=== PATIENT | male | born 1960 | race Caucasian/White ===

== ENCOUNTER 2019-03-06 17:34 | Inpatient (IN) | payer OTHER, MEDICAID ==
[~2019-03-06] VITALS: Ht 188 cm; Wt 111.3 kg
[2019-03-06 18:33] LABS: Albumin 3.7 g/dL (3.4-5.0); Calcium 8.6 mg/dL (8.5-10.1); Potassium 3.6 mmol/L (3.5-5.1)
[2019-03-06 18:36] LABS: BUN/Creatinine Ratio 14.4; Bilirubin, Total 1.2 mg/dL (0.2-1.0); Total Protein 7.9 g/dL (6.4-8.2)
[2019-03-06 18:39] LABS: Eosinophils # (auto) 0.2 uL; Lymphocytes # (auto) 1.7 uL; Monocytes # (auto) 0.6 uL
[2019-03-06 18:49] LABS: Basophils # (auto) 0.1 uL; Basophils % (auto) 0.8 % (0.0-2.0); Hemoglobin 20.2 g/dL (13.5-17.5); Lymphocytes % (auto) 18.3 % (10.0-50.0); Monocytes % (auto) 6.8 % (0.0-12.0); Neutrophils # (auto) 6.6 uL; Neutrophils % (auto) 72.1 % (37.0-80.0); Nucleated Red Blood Cells % 0.5 %; Red Blood Cells 6.81 10^6/uL (4.5-5.90); White Blood Cell 9.2 10^3/uL (4.4-10.8)
[2019-03-06 18:50] LABS: Hematocrit 60.8 % (41.0-53.0); Mean Corpuscular Hemoglobin 29.6 pg (28.0-32.0); Mean Corpuscular Hgb Conc. 33.2 g/dL (32.0-36.0); Mean Corpuscular Volume 89.3 fL (80.0-100.0); Platelet Count (auto) 210 10^3/uL (140-450); Red Cell Distribution Width 17.2 % (11.8-14.3)
[2019-03-06] MEDS ORDERED: NITROGLYCERIN 0.4MG/HR TOPICAL PATCH TD ONE (19:30)
[2019-03-06] MEDS ORDERED: LORazepam 0.5 MG TAB PO ONE (19:30)
[2019-03-06] MEDS ORDERED: ASPirin 81 mg TAB PO ONE (19:30)
[2019-03-06] MEDS ORDERED: SODIUM CHLORIDE 0.9% 1,000 ML IV ONE (20:00)
[2019-03-06 20:16] LABS: INR 0.93 (0.9-1.15); Partial Thromboplastin Time 25.2 sec (23.64-32.05); Prothrombin Time 10.1 sec (9.06-12.60)
[2019-03-06] MEDS ORDERED: IOHEXOL 350 MG/ML 100ML IJ ONE (22:29)
[2019-03-06] MEDS ORDERED: ALLO300T2 PO (23:11)
[2019-03-06] MEDS ORDERED: LISI-646 PO (23:11)
[2019-03-06] MEDS ORDERED: AML5T PO (23:11)
[2019-03-06] MEDS ORDERED: METO-169 PO (23:11)
[2019-03-07] MEDS ORDERED: ACETAMINOPHEN 325 MG TAB PO PRN (00:30)
[2019-03-07] MEDS ORDERED: NITROGLYCERIN 0.4 MG SL TAB SL PRN (00:30)
[2019-03-07] MEDS ORDERED: TEMAZEPAM 15 MG CAP PO PRN (00:30)
[2019-03-07] MEDS ORDERED: HYDROcodone-ACET 5/325MG TAB PO PRN (00:30)
[2019-03-07] MEDS ORDERED: MORPHINE SULF INJ 2 MG/ML SYRINGE 1ML IV PRN (00:30)
[2019-03-07] MEDS ORDERED: ONDANSETRON HCL 4 MG/2 ML VIAL IV PRN (00:30)
[2019-03-07] MEDS: SODIUM CHLORIDE 0.9% 1,000 ML IV SCH ×2 (00:46→17:04)
[2019-03-07] MEDS ORDERED: ENOXAPARIN SOD 100 MG/1 ML SYRINGE SC SCH (01:00)
[2019-03-07] MEDS ORDERED: ATORVASTATIN 20 MG TAB PO SCH ×2 (01:00→22:00)
[2019-03-07] MEDS ORDERED: FUROSEMIDE 20 MG/2 ML VIAL IV SCH (01:00)
--- NOTE | 2019-03-07 02:20 | NUR ---
Telemetry admit from ER VIKY WILDER admitted to Telemetry unit after SBAR received. Patient oriented to Valerie Shirley, primary RN, unit, room, bed, and unit policies regarding patient care and visiting hours. Patient now on continuous telemetry monitoring, tele box #27 and telemetry reading on arrival to unit is . Patient placed on bedside oxygen, weighed by bedscale and encouraged to call if they need something. All questions and concerns addressed, patient verbalized understanding. Note:
[2019-03-07 05:00] VITALS: BP 128/74
[2019-03-07 08:00] VITALS: BP 131/68
--- NOTE | 2019-03-07 08:00 | NUR ---
Opening Shift Note Assumed care of patient, awake, alert and oriented X4. No S/S of distress/SOB or pain. Tele# 27, sinus rhythm @ 97 bpm. IV to right antecubital, 22 gauge, patent and infusing 0.9% NS @ 60 ml/hr. Instructed on POC and to call for assist PRN, verbalized understanding. 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 Bed locked, in lowest position, call light within reach, will continue to monitor for changes Q1hr and PRN.
[2019-03-07] MEDS: ASPirin 81 mg TAB PO SCH (10:23)
[2019-03-07] MEDS: FUROSEMIDE 40 MG TAB PO SCH (10:24)
[2019-03-07] MEDS: amLODIPine BESYLATE 5 MG TAB PO SCH (10:24)
[2019-03-07] MEDS: METOPROLOL SUCCINATE XL 50 MG TAB PO SCH (10:25)
[2019-03-07] MEDS: FAMOTIDINE 20 MG TAB PO SCH ×2 (10:25→21:40)
[2019-03-07] MEDS: LISINOPRIL 20 MG TAB PO SCH ×2 (10:26→21:40)
[2019-03-07] MEDS: ALLOPURINOL 300 MG TAB PO SCH (10:26)
[2019-03-07 12:00] VITALS: BP 136/87
--- NOTE | 2019-03-07 12:08 | NUR ---
ROUNDS Dr [place] at bedside for rounds, new orders received and followed through. Patient updated on plan of care, verbalized understanding.
[2019-03-07 17:00] VITALS: BP 140/90
--- NOTE | 2019-03-07 19:12 | NUR ---
Care endorsed to MARVIN Moreira, night nurse.
--- NOTE | 2019-03-07 19:15 | NUR ---
OPENING NOTE Received report from day shift RN. Patient is A&O X's 4 with no s/s of distress noted. Educated patient on POC/to use call light when in need of assistance. Patient verbalized understanding. Bed is in lowest/locked position with side rails up X's 2 and call light is within reach of patient. Crutches are at bedside. Will continue to monitor for changes and round hourly/PRN.
--- NOTE | 2019-03-07 20:25 | NUR ---
IV INSERTION 22G IV to left hand was inserted using clean technique with one attempt. Patient tolerated procedure well. 20G IV to right AC was already removed by accident by patient. Catheter was fully intact and no trauma was noted. Applied gauze to site.
[2019-03-07 22:00] VITALS: BP 160/86
[2019-03-08 04:54] VITALS: BP 171/100
--- NOTE | 2019-03-08 05:27 | NUR ---
REASSESS BLOOD PRESSURE 135/88
[2019-03-08 06:43] LABS: Basophils # (auto) 0 uL; Eosinophils # (auto) 0.2 uL; Hemoglobin 18.3 g/dL (13.5-17.5); Lymphocytes # (auto) 1.9 uL; Monocytes # (auto) 0.6 uL; Nucleated Red Blood Cells % 0.1 %; Red Blood Cells 6.18 10^6/uL (4.5-5.90); White Blood Cell 5.4 10^3/uL (4.4-10.8)
[2019-03-08 06:45] LABS: Basophils % (auto) 0.5 % (0.0-2.0); Eosinophils % (auto) 2.8 % (0.0-7.0); Hematocrit 54.7 % (41.0-53.0); Lymphocytes % (auto) 34.5 % (10.0-50.0); Mean Corpuscular Hemoglobin 29.7 pg (28.0-32.0); Mean Corpuscular Hgb Conc. 33.5 g/dL (32.0-36.0); Mean Corpuscular Volume 88.6 fL (80.0-100.0); Monocytes % (auto) 11.2 % (0.0-12.0); Neutrophils # (auto) 2.8 uL; Platelet Count (auto) 178 10^3/uL (140-450); Red Cell Distribution Width 16.4 % (11.8-14.3)
[2019-03-08 06:49] LABS: Calcium 8.8 mg/dL (8.5-10.1); Potassium 3.9 mmol/L (3.5-5.1)
[2019-03-08 06:53] LABS: BUN/Creatinine Ratio 15.4
[2019-03-08] MEDS: ASPirin 81 mg TAB PO SCH (07:59)
[2019-03-08] MEDS: ALLOPURINOL 300 MG TAB PO SCH (07:59)
[2019-03-08] MEDS: FAMOTIDINE 20 MG TAB PO SCH (07:59)
[2019-03-08 08:00] VITALS: BP 148/104
--- NOTE | 2019-03-08 08:00 | NUR ---
Opening Shift Note Assumed care of patient, awake, alert and oriented X4. No S/S of distress/SOB or pain. Tele# 27, sinus rhythm @ 96 bpm. IV to left hand, 22 gauge, patent and infusing 0.9% NS @ 60 ml/hr. Right BKA with stump healed, clean, dry and intact. Instructed on POC and to call for assist PRN, verbalized understanding. Bed locked, in lowest position, call light within reach, will continue to monitor for changes Q1hr and PRN.
[2019-03-08] MEDS: METOPROLOL SUCCINATE XL 50 MG TAB PO SCH (08:02)
[2019-03-08] MEDS: amLODIPine BESYLATE 5 MG TAB PO SCH (08:03)
[2019-03-08] MEDS: FUROSEMIDE 40 MG TAB PO SCH (08:03)
[2019-03-08] MEDS: LISINOPRIL 20 MG TAB PO SCH (08:03)
[2019-03-08] MEDS ORDERED: NICOTINE 14 MG/24HR TOPICAL PATCH TD SCH (10:00)
--- NOTE | 2019-03-08 10:30 | NUR ---
Rounds Dr Boston at bedside discussing POC with patient. Signed: 03/08/19 at 1137 by SN MYLES <Co-Signature Required> Co-Signed: 03/08/19 at 1137 by Ginny Awad RN
[2019-03-08 11:48] VITALS: BP 147/99
[2019-03-08 12:00] VITALS: BP 147/99
== END 2019-03-08 12:30 | disposition home or self-care (01) | DRG 291 ==
LOC: ER 17:34 → TELE 03-07 00:31 → TELE-CENTR 03-07 02:28
PROVIDERS: ADMIT Nurse Practitioner; ATTEND Internal Medicine Geriatric Medicine
DX: I11.0 Hypertensive heart disease with heart failure (principal); I50.31 Acute diastolic (congestive) heart failure; E78.5 Hyperlipidemia, unspecified; F17.210 Nicotine dependence, cigarettes, uncomplicated; M10.9 Gout, unspecified; Z89.511 Acquired absence of right leg below knee; Z88.2 Allergy status to sulfonamides; R07.89 Other chest pain
CPT/HCPCS: 36415; 71045; 71275; 80048; 80053; 83735; 83880; 84484; 85025; 85379; 85610; 85730; 86141; 93005; 93306; 96360; 96361; G0378